=== PATIENT | female | born 1965 | race Caucasian/White ===

== ENCOUNTER 2018-08-04 06:38 | Day surgery (SDC) | payer OTHER, MEDICAID, SELFPAY ==
[2018-07-30 07:42] VITALS: BMI 43.2
[2018-08-04] VITALS (8 sets, daily range): BP systolic 125–147; BP diastolic 60–90; PULSE 65–80; RESP 10–15; TEMP 36.1–36.4; O2SAT 98–100; BMI 43.2
[2018-08-04] MEDS: LACTATED RINGERS 1,000 ML 100 ML IV (07:41)
[2018-08-04] MEDS: CEFAZOLIN 2 GM/100 ML FROZ.PIGGY IV (07:47)
--- NOTE | 2018-08-04 08:53 | SUR.OPER ---
Lithotomy on padded OR bed. [place] Pad Positioner under torso. Head on pillow, LEFT ARM padded and tucked at sides. Legs secured in padded yellow fins stirrups. RIGHT ARM SECURED ON ARM BOARD.
[2018-08-04] MEDS: BUPIVACAINE 0.5% W/ EPI (PF) VIAL 30 ML INJ (09:06)
[2018-08-04] MEDS: OXYCODONE IR 5 MG TABLET PO (09:59)
--- NOTE | 2018-08-04 14:04 | PM.PREOP ---
Pre-operative Note Interval Note History & Physical reviewed/Exam performed by Physician: Yes Changes to H&P: No
--- NOTE | 2018-08-11 06:17 | PM.GYNOP.1 ---
Operative Date/Time/Diagnoses Date of procedure: 08/04/18 Time of procedure: 10:15 Pre-op diagnosis: Abnormal uterine bleeding Pelvic pain Post-op diagnosis: same Procedure: Procedures Operation Date: 08/04/18 07:45 Actual Procedures Side Surgeon p Laparoscopy, Diagnostic, MINISTER Not Applicable Leah Pickering MD Diagnostic laparoscopy Indications: Abnormal uterine bleeding Pelvic pain Surgeon: Leah Pickering Administrative Services Coordinator: Bruce Victor Anesthesia Type: General Operative Notes Findings: Pendulous abdomen Deep subcutaneous fat in abdomen Closure Type: primary Specimen(s): none Applied: catheter (Removed at the end of the case) Estimated blood loss (mL): 5 Blood products transfused: none Procedure in detail: The patient was taken to the operating room where she was placed in the dorsal supine position. After adequate general endotracheal anesthesia was achieved, she was placed in the dorsal lithotomy position, and prepped and draped in the usual sterile fashion. A time-out was performed. A bivalve speculum was placed into the vagina, and the anterior lip of the cervix grasped with a single-tooth tenaculum. The cervical os was sequentially dilated until the Zumi uterine manipulator could pass easily into the endometrial cavity. Single-tooth tenaculum was removed from the anterior lip of the cervix. The bivalve speculum was removed from the vagina. Attention was then turned to the abdomen where 6 cc of 0.5% Marcaine with epinephrine were injected in the umbilical fold. A 5 mm incision was made. An attempt was made to place the long Veress needle, but was unable to get it into the peritoneal cavity. A decision was made to use a Cabrales trocar. The 5 mm incision was extended to 1 cm. The edges of the skin were grasped with Allis clamps. The fascia was identified and incised in the midline. The peritoneum was grasped between 2 hemostats and entered sharply with the Metzenbaum scissors. The Cabrales was placed into the peritoneal cavity. The abdominal cavity was insufflated with 5.4 L of CO2. At the max pressure of 18 mm of mercury, the pelvis was unable to be visualized. We were at the limits of our instrumentation due to the depth of the patient's abdominal wall. A conversation was held with her and the decision was made to close and refer patient to [place] where they have bariatric instrumentation. The has on was removed from peritoneal cavity. The fascia was reapproximated with 0 Vicryl in a running fashion. The subcutaneous layer was closed with 3 simple interrupted sutures with 2 0 Vicryl. The skin was closed with 4 0 undyed Vicryl in a subcuticular fashion. Steri-Strips, 2 x 2, and op site was placed. The Zumi uterine manipulator was removed from the uterus. Sponge, lap, and instrument counts were correct x2. The patient tolerated the procedure well, and was taken to PACU in stable condition. Complications: none Post-operative Condition: stable Disposition: PACU Plan for aftercare: Home after recovery
--- NOTE | 2018-08-11 06:24 | P.OP_ITS ---
Operative Date/Time/Diagnoses Date of procedure: 08/04/18 Time of procedure: 10:15 Pre-op diagnosis: Abnormal uterine bleeding Pelvic pain Post-op diagnosis: same Procedure: Procedures Operation Date: 08/04/18 07:45 Actual Procedures Side Surgeon p Laparoscopy, Diagnostic, CARDIOLOGIST Not Applicable Leah Pickering MD Diagnostic laparoscopy Indications: Abnormal uterine bleeding Pelvic pain Surgeon: Leah Pickering Seed Packer: Bruce Victor Anesthesia Type: General Operative Notes Findings: Pendulous abdomen Deep subcutaneous fat in abdomen Closure Type: primary Specimen(s): none Applied: catheter (Removed at the end of the case) Estimated blood loss (mL): 5 Blood products transfused: none Procedure in detail: The patient was taken to the operating room where she was placed in the dorsal supine position. After adequate general endotracheal anesthesia was achieved, she was placed in the dorsal lithotomy position, and prepped and draped in the usual sterile fashion. A time-out was performed. A bivalve speculum was placed into the vagina, and the anterior lip of the cervix grasped with a single-tooth tenaculum. The cervical os was sequentially dilated until the Zumi uterine manipulator could pass easily into the endometrial cavity. Single-tooth tenaculum was removed from the anterior lip of the cervix. The bivalve speculum was removed from the vagina. Attention was then turned to the abdomen where 6 cc of 0.5% Marcaine with epinephrine were injected in the umbilical fold. A 5 mm incision was made. An attempt was made to place the long Veress needle, but was unable to get it into the peritoneal cavity. A deci claire was made to use a Cabrales trocar. The 5 mm incision was extended to 1 cm. The edges of the skin were grasped with Allis clamps. The fascia was identified and incised in the midline. The peritoneum was grasped between 2 hemostats and entered sharply with the Metzenbaum scissors. The Cabrales was placed into the peritoneal cavity. The abdominal cavity was insufflated with 5.4 L of CO2. At the max pressure of 18 mm of mercury, the pelvis was unable to be visualized. We were at the limits of our instrumentation due to the depth of the patient's abdominal wall. A conversation was held with her and the decision was made to close and refer patient to [place] where they have bariatric instrumentation. The has on was removed from peritoneal cavity. The fascia was reapproximated with 0 Vicryl in a running fashion. The subcutaneous layer was closed with 3 simple interrupted sutures with 2 0 Vicryl. The skin was closed with 4 0 undyed Vicryl in a subcuticular fashion. Steri-Strips, 2 x 2, and op site was placed. The Zumi uterine manipulator was removed from the uterus. Sponge, lap, and instrument counts were correct x2. The patient tolerated the procedure well, and was taken to PACU in stable condition. Complications: none Post-operative Condition: stable Disposition: PACU Plan for aftercare: Home after recovery
--- NOTE | 2018-08-11 06:44 | PM.HP.1 ---
History of Present Illness Date Patient Seen: 08/04/18 Time Patient Seen: 07:30 Chief complaint: [id number] [facility] LES SALPINGECTOMY ? BSO *OPB* Narrative: Patient is a 53-year-old 2 para 0 who presents for a scheduled laparoscopic supracervical hysterectomy with bilateral salpingectomy Patient History Medical History Anxiety (Acute) Depression (Acute) Graves' disease (Acute) HTN (hypertension) (Acute) Hemorrhage of skin lesion (Acute) Hypothyroid (Acute) Insomnia (Acute) Pulmonary embolism (Acute ~2011) Surgical History Hx of colonoscopy (Acute) Social History household members: spouse Smoking Status: Never smoker Family & Social History Social History: household members spouse Tobacco & Substance use: Smoking Status Never smoker Substance Use Type does not use Meds Home Medications Medication Instructions Recorded Confirmed Type citalopram 40 mg tablet 40 mg PO DAILY 04/21/18 07/30/18 History hydrochlorothiazide 25 mg tablet 25 mg PO DAILY 04/21/18 08/04/18 History levothyroxine 200 mcg tablet 200 mcg PO DAILY 04/21/18 08/04/18 History levothyroxine 75 mcg tablet 75 mcg PO DAILY 04/21/18 08/04/18 History lisinopril 10 mg tablet 10 mg PO DAILY 04/21/18 08/04/18 History oxycodone-acetaminophen [Percocet] 1 tab PO Q4-6H PRN #20 tab 08/04/18 Rx progesterone 1 tab PO BEDTIME 08/04/18 08/04/18 History Allergies Allergy/AdvReac Type Severity Reaction Status Date / Time No Known Drug Allergies Allergy Verified 04/21/18 15:25 Exam Vital Signs (past 8 hours): Oxygen Delivery Method Room Air Narrative Exam Narrative: HEENT: [No thyromegaly, no anterior cervical or supraclavicular lymphadenopathy.] Lungs:[Clear to auscultation bilaterally, no wheezes.] Cardiovascular: [Regular rate and rhythm, no murmurs, rubs, or gallops]. Abdomen: [No scars. No hepatosplenomegaly. No masses palpable.] External genitalia: [Normal] Vagina: [Normal] Cervix: [Normal] Bimanual exam: 6 Week size uterus. Mobile. Rectal: [No masses]. Assessment & Plan Assessment & Plan narrative: Assessment: 53-year-old 2 para 0 with menorrhagia Plan: Laparoscopic supracervical hysterectomy with bilateral salpingectomy. The risks, benefits, and alternatives to the procedure were explained to the patient. The risks including bleeding, infection, injury to the bowel, bladder, or ureters. She understands these risks and agrees to proceed. She also understands that there is a possibility of an open procedure. A full PAR-Q was held and consent form was signed. Time Spent With Patient Time with patient: 15-24 minutes
--- NOTE | 2018-08-11 06:47 | P.HP_ITS ---
History of Present Illness Date Patient Seen: 08/04/18 Time Patient Seen: 07:30 Chief complaint: [id number] [facility] LES SALPINGECTOMY ? BSO *OPB* Narrative: Patient is a 53-year-old 2 para 0 who presents for a scheduled laparoscopic supracervical hysterectomy with bilateral salpingectomy Patient History Medical History Anxiety (Acute) Depression (Acute) Graves' disease (Acute) HTN (hypertension) (Acute) Hemorrhage of skin lesion (Acute) Hypothyroid (Acute) Insomnia (Acute) Pulmonary embolism (Acute ~2011) Surgical History Hx of colonoscopy (Acute) Social History household members: spouse Smoking Status: Never smoker Family & Social History Social History: household members spouse Tobacco & Substance use: Smoking Status Never smoker Substance Use Type does not use Meds Home Medications Medication Instructions Recorded Confirmed Type citalopram 40 mg tablet 40 mg PO DAILY 04/21/18 07/30/18 History hydrochlorothiazide 25 mg tablet 25 mg PO DAILY 04/21/18 08/04/18 History levothyroxine 200 mcg tablet 200 mcg PO DAILY 04/21/18 08/04/18 History levothyroxine 75 mcg tablet 75 mcg PO DAILY 04/21/18 08/04/18 History lisinopril 10 mg tablet 10 mg PO DAILY 04/21/18 08/04/18 History oxycodone-acetaminophen [Percocet] 1 tab PO Q4-6H PRN #20 tab 08/04/18 Rx progesterone 1 tab PO BEDTIME 08/04/18 08/04/18 History Allergies Allergy/AdvReac Type Severity Reaction Status Date / Time No Known Drug Allergies Allergy Verified 04/21/18 15:25 Exam Vital Signs (past 8 hours): Oxygen Delivery Method Room Air Narrative Exam Narrative: HEENT: [No thyromegaly, no anterior cervical or supraclavicular lymphadenopathy.] Lungs:[Clear to auscultation bilaterally, no wheezes.] Cardiovascular: [Regular rate and rhythm, no murmurs, rubs, or gallops]. Abdomen: [No scars. No hepatosplenomegaly. No masses palpable.] External genitalia: [Normal] Vagina: [Normal] Cervix: [Normal] Bimanual exam: 6 Week size uterus. Mobile. Rectal: [No masses]. Assessment & Plan Assessment & Plan narrative: Assessment: 53-year-old 2 para 0 with menorrhagia Plan: Laparoscopic supracervical hysterectomy with bilateral salpingectomy. The risks, benefits, and alternatives to the procedure were explained to the patient. The risks including bleeding, infection, injury to the bowel, bladder, or ureters. She understands these risks and agrees to proceed. She also understands that there is a possibility of an open procedure. A full PAR-Q was h eld and consent form was signed. Time Spent With Patient Time with patient: 15-24 minutes
== END 2018-08-04 10:25 | disposition home or self-care (01) ==
PROVIDERS: PCP Family Medicine; Visit Provider Obstetrics & Gynecology
PROC: (CPT 49320; principal; 2018-08-04 07:45)
DX: N92.0 Excessive and frequent menstruation with regular cycle (principal); E65 Localized adiposity; F41.9 Anxiety disorder, unspecified; F32.9 Major depressive disorder, single episode, unspecified; E05.00 Thyrotoxicosis with diffuse goiter without thyrotoxic crisis or storm; E03.9 Hypothyroidism, unspecified; I10 Essential (primary) hypertension; Z86.711 Personal history of pulmonary embolism
CPT/HCPCS: 49320; J0131; J0690; J1100; J1885; J2250; J2405; J2704; J3010

== ENCOUNTER → 2021-02-06 13:23 | Outpatient (CLI) | payer OTHER, SELFPAY ==
[2021-02-06 20:23] LABS: Uric Acid 7.9 mg/dL (2.5-6.2)
== END ==
PROVIDERS: PCP Family Medicine; Visit Provider Physician Assistant
DX: M10.9 Gout, unspecified (principal)
CPT/HCPCS: 84550

== ENCOUNTER → 2021-02-15 13:05 | Outpatient (CLI) | payer OTHER, SELFPAY ==
[2021-02-15 19:11] LABS: Add Manual Diff / Slide Review NO; Basophils Absolute Auto 100 /uL (0-100); Basophils Percent Auto 0.9 % (0-2); Eosinophils Absolute Auto 300 /uL (0-450); Eosinophils Percent Auto 4.3 % (2-4); Hematocrit 39.2 % (36-46); Hemoglobin 12.8 g/dL (12.0-16.0); Lymphocytes Absolute Auto 2500 /uL (1100-4500); Lymphocytes Percent Auto 32.8 % (25-40); Mean Corpuscular HGB Conc 32.7 % (30-36); Mean Corpuscular Hemoglobin 28.3 PG (26-34); Mean Corpuscular Volume 86.6 fL (80-100); Monocytes Absolute Auto 400 /uL (0-900); Monocytes Percent Auto 5.8 % (3-14); Neutrophils Absolute Auto 4300 /uL (1500-7000); Neutrophils Percent Auto 56.2 % (50-75); Platelet Count 358 X10^3/uL (150-400); Red Blood Cell Count 4.53 X10^6/uL (4.0-5.2); Red Cell Distribution Width 14.7 % (11.6-14.8); White Blood Cell Count 7.6 X10^3/uL (4.5-11.0)
[2021-02-15 19:19] LABS: Alanine Aminotransferase 27 IU/L (<35); Albumin 4.5 g/dL (3.5-5.0); Albumin Globulin Ratio 1.5 (1.0-2.8); Alkaline Phosphatase 77 U/L (38-126); Aspartate Aminotransferase 39 IU/L (14-36); BUN Creatinine Ratio 20.9 (6-22); Bilirubin Total 0.4 mg/dL (0.2-1.3); Blood Urea Nitrogen 19 mg/dL (7-17); Calcium 9.9 mg/dL (8.4-10.2); Carbon Dioxide 29 mmol/L (22-32); Chloride 102 mmol/L (98-107); Estimated Glomerular Filt Rate > 60.0 mL/min (>60); Globulin 3.1 g/dL (1.7-4.1); Glucose 86 mg/dL (70-100); HEMOLYSIS < 15 (0-50); Potassium 4.2 mmol/L (3.4-5.1); Sodium 137 mmol/L (137-145); Total Protein 7.6 g/dL (6.3-8.2); Uric Acid 6.5 mg/dL (2.5-6.2)
[2021-02-15 19:26] LABS: Hemoglobin A1C% w Est Avg Glu 5.6 % (4.0-6.0)
[2021-02-15 19:43] LABS: Thyroid Stimulating Hormone 67.5 uIU/mL (0.47-4.68)
== END ==
PROVIDERS: PCP Family Medicine; Visit Provider Family Medicine
DX: M10.9 Gout, unspecified (principal); I10 Essential (primary) hypertension; M25.562 Pain in left knee; E66.9 Obesity, unspecified; N21.1 Calculus in urethra; E03.9 Hypothyroidism, unspecified; Z13.220 Encounter for screening for lipoid disorders; M25.50 Pain in unspecified joint
CPT/HCPCS: 80053; 83036; 84443; 84550; 85025

== ENCOUNTER → 2021-04-10 09:36 | Outpatient (CLI) | payer OTHER, SELFPAY ==
[2021-04-11 19:35] LABS: Cholesterol 176 mg/dL (140-199); HDL Cholesterol 56 mg/dL (40-60); LDL Cholesterol Calculated 93 mg/dL (<100); Triglycerides 133 mg/dL (35-150); Uric Acid 5.5 mg/dL (2.5-6.2)
[2021-04-11 19:56] LABS: Thyroid Stimulating Hormone 0.033 uIU/mL (0.47-4.68)
[2021-04-13 05:57] LABS: Insulin Level Total 17.3 uIU/mL (2.6-24.9)
== END ==
PROVIDERS: PCP Family Medicine; Referring Provider Family Medicine; Visit Provider Family Medicine
DX: E03.9 Hypothyroidism, unspecified (principal); E66.9 Obesity, unspecified; F33.1 Major depressive disorder, recurrent, moderate; F41.9 Anxiety disorder, unspecified; I10 Essential (primary) hypertension; N21.1 Calculus in urethra; Z13.220 Encounter for screening for lipoid disorders
CPT/HCPCS: 80061; 83525; 84443; 84550

== ENCOUNTER → 2021-04-13 19:53 | Outpatient (CLI) | payer OTHER, SELFPAY | PROVIDERS: PCP Family Medicine; Referring Provider Internal Medicine; Visit Provider Internal Medicine | DX: Z23 Encounter for immunization (principal) | CPT/HCPCS: 90471; 90686 ==

== ENCOUNTER → 2021-10-24 08:25 | Outpatient (CLI) | payer OTHER, SELFPAY ==
[2021-10-24 19:17] LABS: Add Manual Diff / Slide Review NO; Basophils Absolute Auto 0 /uL (0-100); Basophils Percent Auto 0.6 % (0-2); Eosinophils Absolute Auto 400 /uL (0-450); Eosinophils Percent Auto 4.9 % (2-4); Hematocrit 38.9 % (36-46); Hemoglobin 12.7 g/dL (12.0-16.0); Lymphocytes Absolute Auto 1700 /uL (1100-4500); Mean Corpuscular HGB Conc 32.6 % (30-36); Mean Corpuscular Hemoglobin 28.5 PG (26-34); Mean Corpuscular Volume 87.4 fL (80-100); Monocytes Absolute Auto 500 /uL (0-900); Monocytes Percent Auto 7.4 % (3-14); Neutrophils Absolute Auto 4700 /uL (1500-7000); Neutrophils Percent Auto 64.1 % (50-75); Platelet Count 363 X10^3/uL (150-400); Red Blood Cell Count 4.45 X10^6/uL (4.0-5.2); Red Cell Distribution Width 15.2 % (11.6-14.8); White Blood Cell Count 7.3 X10^3/uL (4.5-11.0)
[2021-10-24 19:22] LABS: Alanine Aminotransferase 17 IU/L (<35); Albumin 4.3 g/dL (3.5-5.0); Albumin Globulin Ratio 1.4 (1.0-2.8); Alkaline Phosphatase 74 U/L (38-126); Aspartate Aminotransferase 23 IU/L (14-36); BUN Creatinine Ratio 26.5 (6-22); Bilirubin Total 0.4 mg/dL (0.2-1.3); Blood Urea Nitrogen 27 mg/dL (7-17); Calcium 9.6 mg/dL (8.4-10.2); Carbon Dioxide 29 mmol/L (22-32); Chloride 104 mmol/L (98-107); Cholesterol 216 mg/dL (140-199); Estimated Glomerular Filt Rate > 60 mL/min (>60); Globulin 3.1 g/dL (1.7-4.1); Glucose 86 mg/dL (70-100); HDL Cholesterol 84 mg/dL (40-60); HEMOLYSIS < 15 (0-50); LDL Cholesterol Calculated 113 mg/dL (<100); Potassium 3.9 mmol/L (3.4-5.1); Sodium 141 mmol/L (137-145); Total Protein 7.4 g/dL (6.3-8.2); Triglycerides 94 mg/dL (35-150)
[2021-10-24 19:35] LABS: Free T4, Direct Thyroxine 1.58 ng/dL (0.78-2.19)
[2021-10-24 19:45] LABS: Vitamin D 25 Hydroxy (D3) 28.2 ng/mL (30.0-100.0)
[2021-10-24 19:49] LABS: Thyroid Stimulating Hormone 21.6 uIU/mL (0.47-4.68)
[2021-10-24 20:12] LABS: Vitamin B12 792 pg/mL (239-931)
[2021-10-24 21:57] LABS: Hemoglobin A1C% w Est Avg Glu 5.7 % (4.0-6.0)
== END ==
PROVIDERS: PCP Family Medicine; Visit Provider Family Medicine
DX: E03.4 Atrophy of thyroid (acquired) (principal); E66.01 Morbid (severe) obesity due to excess calories; I10 Essential (primary) hypertension; R07.89 Other chest pain; Z13.220 Encounter for screening for lipoid disorders; Z68.42 Body mass index [BMI] 45.0-49.9, adult; Z68.45 Body mass index [BMI] 70 or greater, adult
CPT/HCPCS: 80053; 80061; 82306; 82607; 83036; 84439; 84443; 85025

== ENCOUNTER → 2022-01-11 13:38 | Outpatient (CLI) | payer OTHER, SELFPAY ==
[2022-01-11 20:32] LABS: Add Manual Diff / Slide Review NO; Basophils Absolute Auto 100 /uL (0-100); Basophils Percent Auto 0.7 % (0-2); Eosinophils Absolute Auto 300 /uL (0-450); Eosinophils Percent Auto 2.7 % (2-4); Hematocrit 40.1 % (36-46); Hemoglobin 13.3 g/dL (12.0-16.0); Lymphocytes Absolute Auto 2400 /uL (1100-4500); Lymphocytes Percent Auto 25.2 % (25-40); Mean Corpuscular HGB Conc 33.1 % (30-36); Mean Corpuscular Hemoglobin 29.2 PG (26-34); Mean Corpuscular Volume 88.1 fL (80-100); Monocytes Absolute Auto 600 /uL (0-900); Monocytes Percent Auto 5.9 % (3-14); Neutrophils Absolute Auto 6100 /uL (1500-7000); Neutrophils Percent Auto 65.5 % (50-75); Platelet Count 364 X10^3/uL (150-400); Red Blood Cell Count 4.56 X10^6/uL (4.0-5.2); Red Cell Distribution Width 15.9 % (11.6-14.8); White Blood Cell Count 9.3 X10^3/uL (4.5-11.0)
[2022-01-11 20:58] LABS: Erythrocyte Sedimentation Rate 49 MM/HR (0-20)
== END ==
PROVIDERS: PCP Family Medicine; Visit Provider Family Medicine
DX: N21.1 Calculus in urethra (principal); R31.9 Hematuria, unspecified; I10 Essential (primary) hypertension; R50.9 Fever, unspecified
CPT/HCPCS: 84550; 85025; 85651; 87077; 87086; 87186

== ENCOUNTER → 2022-04-02 16:57 | Outpatient (CLI) | payer OTHER, SELFPAY | PROVIDERS: PCP Family Medicine; Referring Provider Internal Medicine; Visit Provider Internal Medicine | DX: Z23 Encounter for immunization (principal) | CPT/HCPCS: 90471; 90686 ==

== ENCOUNTER → 2022-05-21 12:15 | Outpatient (CLI) | payer OTHER, SELFPAY ==
[2022-05-21 20:35] LABS: Alanine Aminotransferase 25 IU/L (<35); Albumin 4.4 g/dL (3.5-5.0); Albumin Globulin Ratio 1.4 (1.0-2.8); Alkaline Phosphatase 68 U/L (38-126); Aspartate Aminotransferase 37 IU/L (14-36); BUN Creatinine Ratio 19.7 (6-22); Bilirubin Total 0.4 mg/dL (0.2-1.3); Blood Urea Nitrogen 26 mg/dL (7-17); Calcium 9.8 mg/dL (8.4-10.2); Carbon Dioxide 30 mmol/L (22-32); Chloride 98 mmol/L (98-107); Cholesterol 322 mg/dL (140-199); Estimated Glomerular Filt Rate 47 mL/min (>60); Globulin 3.1 g/dL (1.7-4.1); Glucose 84 mg/dL (70-100); HDL Cholesterol 93 mg/dL (40-60); HEMOLYSIS < 15 (0-50); LDL Cholesterol Calculated 207 mg/dL (<100); Potassium 3.9 mmol/L (3.4-5.1); Sodium 137 mmol/L (137-145); Total Protein 7.5 g/dL (6.3-8.2); Triglycerides 108 mg/dL (35-150)
[2022-05-21 20:38] LABS: Add Manual Diff / Slide Review NO; Basophils Absolute Auto 100 /uL (0-100); Basophils Percent Auto 1.2 % (0-2); Eosinophils Absolute Auto 300 /uL (0-450); Eosinophils Percent Auto 3.6 % (2-4); Hematocrit 36.8 % (36-46); Hemoglobin 12.2 g/dL (12.0-16.0); Lymphocytes Absolute Auto 2300 /uL (1100-4500); Lymphocytes Percent Auto 30.3 % (25-40); Mean Corpuscular HGB Conc 33.2 % (30-36); Mean Corpuscular Hemoglobin 29.5 PG (26-34); Mean Corpuscular Volume 88.7 fL (80-100); Monocytes Absolute Auto 500 /uL (0-900); Monocytes Percent Auto 6.2 % (3-14); Neutrophils Absolute Auto 4400 /uL (1500-7000); Neutrophils Percent Auto 58.7 % (50-75); Platelet Count 332 X10^3/uL (150-400); Red Blood Cell Count 4.15 X10^6/uL (4.0-5.2); Red Cell Distribution Width 15.1 % (11.6-14.8); White Blood Cell Count 7.5 X10^3/uL (4.5-11.0)
[2022-05-22 17:31] LABS: Free T4, Direct Thyroxine 0.09 ng/dL (0.78-2.19)
[2022-05-22 18:34] LABS: Hemoglobin A1C% w Est Avg Glu 5.9 % (4.0-6.0)
== END ==
PROVIDERS: PCP Family Medicine; Visit Provider Family Medicine
DX: E03.4 Atrophy of thyroid (acquired) (principal); E11.8 Type 2 diabetes mellitus with unspecified complications; Z68.42 Body mass index [BMI] 45.0-49.9, adult
CPT/HCPCS: 80053; 80061; 83036; 84439; 84443; 85025

== ENCOUNTER → 2022-11-27 13:06 | Outpatient (CLI) | payer OTHER, SELFPAY | PROVIDERS: PCP Family Medicine; Visit Provider Physician Assistant | DX: J35.1 Hypertrophy of tonsils (principal) | CPT/HCPCS: 87070 ==

== ENCOUNTER → 2023-02-20 10:25 | Outpatient (CLI) | payer OTHER, MEDICAID, SELFPAY ==
[2023-02-20 20:28] LABS: Hematocrit 33.5 % (36-46); Mean Corpuscular HGB Conc 32.9 % (30-36); Mean Corpuscular Hemoglobin 29.2 PG (26-34); Mean Corpuscular Volume 88.8 fL (80-100); Platelet Count 322 X10^3/uL (150-400); Red Blood Cell Count 3.77 X10^6/uL (4.0-5.2); White Blood Cell Count 7.1 X10^3/uL (4.5-11.0)
[2023-02-20 20:37] LABS: Hemoglobin A1C% w Est Avg Glu 5.4 % (4.0-6.0)
[2023-02-20 20:45] LABS: Alanine Aminotransferase 15 IU/L (<35); Albumin 3.8 g/dL (3.5-5.0); Albumin Globulin Ratio 1.2 (1.0-2.8); Alkaline Phosphatase 70 U/L (38-126); Aspartate Aminotransferase 23 IU/L (14-36); BUN Creatinine Ratio 20.8 (6-22); Bilirubin Total 0.2 mg/dL (0.2-1.3); Blood Urea Nitrogen 25 mg/dL (7-17); Calcium 8.7 mg/dL (8.4-10.2); Carbon Dioxide 28 mmol/L (22-32); Chloride 103 mmol/L (98-107); Cholesterol 248 mg/dL (140-199); Estimated Glomerular Filt Rate 53 mL/min (>60); Globulin 3.1 g/dL (1.7-4.1); Glucose 94 mg/dL (70-100); HDL Cholesterol 80 mg/dL (40-60); HEMOLYSIS < 15 (0-50); LDL Cholesterol Calculated 151 mg/dL (<100); Potassium 3.5 mmol/L (3.4-5.1); Sodium 139 mmol/L (137-145); Total Protein 6.9 g/dL (6.3-8.2); Triglycerides 83 mg/dL (35-150)
[2023-02-20 21:04] LABS: Add Manual Diff / Slide Review YES
[2023-02-20 21:07] LABS: Microalbumin Urine Random 3.5 mg/dL (0-1.6)
[2023-02-20 21:17] LABS: Creatinine Urine Random 431.3 mg/dL; Microalbumi Creatinin Ratio Ur 8.1 ug/mg CR (<30)
[2023-02-20 22:19] LABS: Neutrophils Absolute Manual 4899 /uL (3000-5900); RBC Morphology Normal Morphology; Total Cells Counted 100
[2023-02-20 22:35] LABS: Free T4, Direct Thyroxine 0.19 ng/dL (0.78-2.19)
== END ==
PROVIDERS: PCP Family Medicine; Visit Provider Family Medicine
DX: E03.9 Hypothyroidism, unspecified (principal); E11.9 Type 2 diabetes mellitus without complications; E78.2 Mixed hyperlipidemia; F98.8 Other specified behavioral and emotional disorders with onset usually occurring in childhood and adolescence; I10 Essential (primary) hypertension; M10.9 Gout, unspecified; N18.31 Chronic kidney disease, stage 3a; Z68.42 Body mass index [BMI] 45.0-49.9, adult; Z79.899 Other long term (current) drug therapy
CPT/HCPCS: 80053; 80061; 82043; 82570; 83036; 84439; 84443; 85007; 85025

== ENCOUNTER → 2023-05-20 14:37 | Outpatient (CLI) | payer OTHER, MEDICAID, SELFPAY ==
[2023-05-20 19:22] LABS: Cholesterol 284 mg/dL (140-199); HDL Cholesterol 87 mg/dL (40-60); LDL Cholesterol Calculated 183 mg/dL (<100); Triglycerides 70 mg/dL (35-150)
[2023-05-20 19:28] LABS: Add Manual Diff / Slide Review NO; Basophils Absolute Auto 0 /uL (0-100); Basophils Percent Auto 0.4 % (0-2); Eosinophils Absolute Auto 200 /uL (0-450); Eosinophils Percent Auto 3.1 % (2-4); Hematocrit 36.8 % (36-46); Hemoglobin 12.1 g/dL (12.0-16.0); Lymphocytes Absolute Auto 1800 /uL (1100-4500); Lymphocytes Percent Auto 25.8 % (25-40); Mean Corpuscular HGB Conc 32.9 % (30-36); Mean Corpuscular Hemoglobin 28.7 PG (26-34); Mean Corpuscular Volume 87.2 fL (80-100); Monocytes Absolute Auto 400 /uL (0-900); Monocytes Percent Auto 5.7 % (3-14); Neutrophils Absolute Auto 4400 /uL (1500-7000); Platelet Count 329 X10^3/uL (150-400); Red Blood Cell Count 4.22 X10^6/uL (4.0-5.2); Red Cell Distribution Width 15.5 % (11.6-14.8); White Blood Cell Count 6.8 X10^3/uL (4.5-11.0)
[2023-05-20 20:13] LABS: Vitamin B12 466 pg/mL (239-931)
== END ==
PROVIDERS: PCP Family Medicine; Visit Provider Family Medicine
DX: R73.03 Prediabetes (principal); N18.31 Chronic kidney disease, stage 3a; I10 Essential (primary) hypertension; E78.2 Mixed hyperlipidemia; F32.9 Major depressive disorder, single episode, unspecified; Z68.42 Body mass index [BMI] 45.0-49.9, adult; E03.9 Hypothyroidism, unspecified
CPT/HCPCS: 80061; 82607; 84439; 84443; 85025

== ENCOUNTER → 2023-10-03 08:40 | Outpatient (CLI) | payer OTHER, MEDICAID, SELFPAY ==
[2023-10-03 19:06] LABS: Add Manual Diff / Slide Review NO; Basophils Absolute Auto 100 /uL (0-100); Basophils Percent Auto 1.3 % (0-2); Eosinophils Absolute Auto 200 /uL (0-450); Hematocrit 36.1 % (36-46); Hemoglobin 11.7 g/dL (12.0-16.0); Lymphocytes Absolute Auto 2000 /uL (1100-4500); Lymphocytes Percent Auto 26.8 % (25-40); Mean Corpuscular HGB Conc 32.5 % (30-36); Mean Corpuscular Hemoglobin 28.4 PG (26-34); Mean Corpuscular Volume 87.2 fL (80-100); Monocytes Absolute Auto 400 /uL (0-900); Neutrophils Absolute Auto 4600 /uL (1500-7000); Neutrophils Percent Auto 62.9 % (50-75); Platelet Count 299 X10^3/uL (150-400); Red Blood Cell Count 4.14 X10^6/uL (4.0-5.2); Red Cell Distribution Width 14.5 % (11.6-14.8); White Blood Cell Count 7.3 X10^3/uL (4.5-11.0)
[2023-10-03 19:07] LABS: HEMOLYSIS < 15 (0-50)
[2023-10-03 19:08] LABS: BUN Creatinine Ratio 33.8 (6-22); Blood Urea Nitrogen 24 mg/dL (7-17); Calcium 9.8 mg/dL (8.4-10.2); Carbon Dioxide 30 mmol/L (22-32); Chloride 109 mmol/L (98-107); Cholesterol 180 mg/dL (140-199); Estimated Glomerular Filt Rate > 60 mL/min (>60); Glucose 95 mg/dL (70-100); HDL Cholesterol 66 mg/dL (40-60); LDL Cholesterol Calculated 97 mg/dL (<100); Sodium 141 mmol/L (137-145); Triglycerides 84 mg/dL (35-150)
[2023-10-03 19:38] LABS: TSH w/ Reflex to FT4 6.36 uIU/mL (0.47-4.68)
[2023-10-03 20:31] LABS: Free T4, Direct Thyroxine 2.27 ng/dL (0.78-2.19)
== END ==
PROVIDERS: PCP Family Medicine; Visit Provider Family Medicine
DX: E78.2 Mixed hyperlipidemia (principal); I12.9 Hypertensive chronic kidney disease with stage 1 through stage 4 chronic kidney disease, or unspecified chronic kidney disease; N18.31 Chronic kidney disease, stage 3a; E03.9 Hypothyroidism, unspecified; F98.8 Other specified behavioral and emotional disorders with onset usually occurring in childhood and adolescence; Z68.43 Body mass index [BMI] 50.0-59.9, adult
CPT/HCPCS: 80048; 80061; 84439; 84443; 85025

== ENCOUNTER → 2023-12-26 13:02 | Outpatient (CLI) | payer OTHER, MEDICAID, SELFPAY ==
[2023-12-26 21:47] LABS: Add Manual Diff / Slide Review NO; Basophils Absolute Auto 0 /uL (0-100); Basophils Percent Auto 0.5 % (0-2); Eosinophils Absolute Auto 200 /uL (0-450); Hematocrit 36.2 % (36-46); Hemoglobin 11.7 g/dL (12.0-16.0); Lymphocytes Absolute Auto 1200 /uL (1100-4500); Lymphocytes Percent Auto 16.1 % (25-40); Mean Corpuscular HGB Conc 32.4 % (30-36); Mean Corpuscular Hemoglobin 27.8 PG (26-34); Mean Corpuscular Volume 85.7 fL (80-100); Monocytes Absolute Auto 500 /uL (0-900); Monocytes Percent Auto 7.1 % (3-14); Neutrophils Absolute Auto 5700 /uL (1500-7000); Neutrophils Percent Auto 74.3 % (50-75); Platelet Count 376 X10^3/uL (150-400); Red Blood Cell Count 4.23 X10^6/uL (4.0-5.2); Red Cell Distribution Width 16.6 % (11.6-14.8); White Blood Cell Count 7.7 X10^3/uL (4.5-11.0)
[2023-12-27 01:14] LABS: BUN Creatinine Ratio 26.9 (6-22); Blood Urea Nitrogen 25 mg/dL (7-17); Calcium 9.6 mg/dL (8.4-10.2); Carbon Dioxide 28 mmol/L (22-32); Chloride 108 mmol/L (98-107); Cholesterol 148 mg/dL (140-199); Estimated Glomerular Filt Rate > 60 mL/min (>60); Glucose 101 mg/dL (70-100); HDL Cholesterol 61 mg/dL (40-60); HEMOLYSIS < 15 (0-50); LDL Cholesterol Calculated 74 mg/dL (<100); Potassium 4.4 mmol/L (3.4-5.1); Sodium 139 mmol/L (137-145); Triglycerides 63 mg/dL (35-150)
[2023-12-27 05:29] LABS: TSH w/ Reflex to FT4 0.28 uIU/mL (0.47-4.68)
[2023-12-27 05:47] LABS: Vitamin B12 907 pg/mL (239-931)
[2023-12-27 06:20] LABS: Free T4, Direct Thyroxine 4.52 ng/dL (0.78-2.19)
== END ==
PROVIDERS: PCP Family Medicine; Visit Provider Family Medicine
DX: I12.9 Hypertensive chronic kidney disease with stage 1 through stage 4 chronic kidney disease, or unspecified chronic kidney disease (principal); N18.31 Chronic kidney disease, stage 3a; E78.2 Mixed hyperlipidemia; E03.9 Hypothyroidism, unspecified; Z90.3 Acquired absence of stomach [part of]; Z68.43 Body mass index [BMI] 50.0-59.9, adult
CPT/HCPCS: 80048; 80061; 82607; 84439; 84443; 85025

== ENCOUNTER 2024-02-22 10:53 | Inpatient (IN) | payer OTHER, MEDICAID, SELFPAY ==
[2024-02-22] VITALS (35 sets, daily range): BP systolic 149–219; BP diastolic 69–105; PULSE 76–118; RESP 12–41; TEMP 36.9; O2SAT 84–98; BMI 49.7
--- NOTE | 2024-02-22 11:05 | DI.RAD.S_ITS ---
PROCEDURE: XR CHEST 1V INDICATIONS: chest pain TECHNIQUE: One view of the chest was acquired. COMPARISON: [facility], , CHEST 2 VIEW, 09/08/2017, 10:12. FINDINGS: Surgical changes and devices: None. Lungs and pleura: Lungs are clear. No pleural effusions or pneumothorax. Mediastinum: Mediastinal contours appear normal. The heart is enlarged. Bones and chest wall: No suspicious bony lesions. Overlying soft tissues appear unremarkable. IMPRESSION: Cardiomegaly without acute cardiopulmonary process. Dictated by: Pati Simons M.D. on 02/22/2024 at 10:43 Approved by: Pati Simons M.D. on 02/22/2024 at 10:45
--- NOTE | 2024-02-22 11:18 | EKG_ITS ---
[address] [address] Test Date: 2024-02-22 Pat Name: Alireza Aguirre Department: [facility] Room: Gender: Female Back Digger Operator: CYNDEE : 1965 Requested By: Order Number: [id number] Reading MD: Rayray Brarow Measurements Intervals [place] Rate: 88 P: 51 ID: [id number] QRS: 54 QRSD: 84 T: 49 QT: 386 QTc: 467 Interpretive Statements Normal sinus rhythm Electronically Signed On 02-22-2024 18:16:11 PDT by Rayray Barrow
[2024-02-22 11:22] LABS: Add Manual Diff / Slide Review NO; Basophils Absolute Auto 100 /uL (0-100); Basophils Percent Auto 0.9 % (0-2); Eosinophils Absolute Auto 100 /uL (0-450); Hematocrit 34.3 % (36-46); Hemoglobin 11.1 g/dL (12.0-16.0); Lymphocytes Absolute Auto 1300 /uL (1100-4500); Lymphocytes Percent Auto 10.2 % (25-40); Mean Corpuscular HGB Conc 32.4 % (30-36); Mean Corpuscular Hemoglobin 27.8 PG (26-34); Monocytes Absolute Auto 800 /uL (0-900); Monocytes Percent Auto 6.2 % (3-14); Neutrophils Absolute Auto 10600 /uL (1500-7000); Neutrophils Percent Auto 81.7 % (50-75); Platelet Count 292 X10^3/uL (150-400); Red Blood Cell Count 3.99 X10^6/uL (4.0-5.2); Red Cell Distribution Width 15.3 % (11.6-14.8)
[2024-02-22 11:24] LABS: Appearance Urine UA CLEAR; Bilirubin Urine UA 1+ (NEGATIVE); Color Urine UA YELLOW; Glucose Urine UA NEGATIVE (Negative); Ketones Urine UA NEGATIVE (NEGATIVE); Leukocyte Esterase Urine UA NEGATIVE (NEGATIVE); Nitrite Urine UA NEGATIVE (Negative); Occult Blood Urine UA TRACE-INTACT (Negative); Protein Urine UA TRACE (Negative); Specific Gravity Urine UA 1.015 (1.000-1.035)
--- NOTE | 2024-02-22 11:26 | DI.CT.S_ITS ---
Approved by: Pati Simons M.D. on 02/22/2024 at 11:44 Caution: Report not yet finalized and possibly incomplete! PROCEDURE: CT ANGIO CHEST PE PROTOCOL, CT ABDOMEN/PELVIS WITH CONTRAST INDICATIONS: syncope/ hypoxia/oxygen req./ tachycardia TECHNIQUE: Computed tomography of the chest, abdomen, and pelvis was performed following the administration of IV contrast. Coronal, sagittal, and maximum intensity projection reformatted images are provided. For radiation dose reduction, the following was used: automated exposure control, adjustment of mA and/or kV according to patient size. COMPARISON: None. FINDINGS: Image quality: Diagnostic. Pulmonary arteries: The main pulmonary arteries and pulmonary trunk are of normal caliber without intraluminal filling defect. There are extensive bilateral filling defects within all segmental arteries extending into several subsegmental arteries. Lower Neck: No enlarged lymph nodes. Thyroid: Visible portions unremarkable. Axillae: No enlarged lymph nodes. Chest Wall: Unremarkable. Bones: Unremarkable. Lungs and Pleura: No pneumothorax or pleural effusions. No consolidation or suspicious nodules. Heart: Heart size is normal. No pericardial effusion. Thoracic Vessels: No aortic aneurysm. Mediastinum and [place]: No enlarged lymph nodes. Esophagus: No wall thickening. No hiatal hernia. Liver: Normal size and morphology without focal lesion. Biliary: No intraluminal stone or debris. No biliary ductal dilation. Pancreas: Mild fatty atrophy without focal lesion. Spleen: Normal. Adrenals: Normal. Kidneys: Normal without stone or hydronephrosis. Mesentery: No ascites or lymphadenopathy. No mesenteric inflammation. Bowel: Bowel is of normal caliber without obstruction. Postsurgical changes of the stomach are shown. Bones: Intact without aggressive lesion. Soft tissues: There is a small fat containing umbilical hernia. Otherwise normal. IMPRESSION: Extensive multifocal segmental pulmonary emboli. No acute abdominal process. Dictated by: Pati Simons M.D. on 02/22/2024 at 11:33
[2024-02-22 11:32] LABS: Bacteria Urine Moderate (10-30); Ictotest Urine Negative (Negative); RBC Urine 1-5/HPF (0-5/HPF); Squamous Epithelial Cell Urine 5-10 /HPF (0-5/HPF); Urine Volume 10mL (spun); WBC Urine 5-10/HPF (0-5/HPF)
[2024-02-22 11:33] LABS: Amorphous Sediment Urine 2+; Culture Indicated Urine Specimen Cultured
[2024-02-22 11:34] LABS: INR 1.1 (0.9-1.3); Prothrombin Time 12.8 SECONDS (9.4-12.5)
[2024-02-22 11:36] LABS: PTT Partial Thromboplastin Tim 35 SECONDS (25.1-36.5)
[2024-02-22 11:38] LABS: Alanine Aminotransferase 25 IU/L (<35); Albumin 3.6 g/dL (3.5-5.0); Albumin Globulin Ratio 1.1 (1.0-2.8); Alkaline Phosphatase 81 U/L (38-126); Aspartate Aminotransferase 29 IU/L (14-36); BUN Creatinine Ratio 22.4 (6-22); Bilirubin Total 0.6 mg/dL (0.2-1.3); Blood Urea Nitrogen 19 mg/dL (7-17); Calcium 9.4 mg/dL (8.4-10.2); Carbon Dioxide 25 mmol/L (22-32); Chloride 108 mmol/L (98-107); Creatine Kinase 48 U/L (30-135); Estimated Glomerular Filt Rate > 60 mL/min (>60); Globulin 3.2 g/dL (1.7-4.1); Glucose 104 mg/dL (70-100); HEMOLYSIS < 15 (0-50); Lipase 78 U/L (23-300); Magnesium 1.8 mg/dL (1.6-2.3); Potassium 4.1 mmol/L (3.4-5.1); Sodium 138 mmol/L (137-145); Total Protein 6.8 g/dL (6.3-8.2)
[2024-02-22] MEDS: SODIUM CHLORIDE 0.9% 1,000 ML 1000 ML IV (11:38)
[2024-02-22 11:50] LABS: NT-proBNP (BNP-Adult 18+) 2550 pg/mL (<125); Troponin I 0.037 ng/mL (0.01-0.034)
--- NOTE | 2024-02-22 12:16 | ED.SYNCOPE ---
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 No focal weakness to face arm or leg. She denies chest pain. On oxygen nasal cannula she denies any shortness of breath. She has no leg pain or swelling symptoms. She has no abdominal pain. She denies headache neck pain. She denies back pain. She denies black or red stools. She denies painful urination or frequency of urination. She denies fevers or chills. Related Data Home Medications Medication Instructions Recorded Confirmed lisdexamfetamine 10 mg capsule 10 mg PO DAILY 09/19/23 02/22/24 (Vyvanse) allopurinol 300 mg tablet 300 mg PO BEDTIME 02/22/24 02/22/24 levothyroxine 200 mcg capsule 400 mcg PO QPM 02/22/24 02/22/24 losartan 100 mg tablet 100 mg PO BEDTIME 02/22/24 02/22/24 Previous Rx's Medication Instructions Recorded colchicine 0.6 mg capsule See Rx Instructions PO .COMPLEX 03/13/23 PRN gout #30 caps bupropion HCl 150 mg 24 hr tablet, 150 mg PO QAM #90 tabs 10/21/23 extended release (Wellbutrin XL) clonazepam 0.5 mg tablet 0.5 mg PO DAILY PRN anxiety #10 10/21/23 tabs doxazosin 4 mg tablet 4 mg PO BEDTIME #90 tabs 10/25/23 Allergies Allergy/AdvReac Type Severity Reaction Status Date / Time ethyl alcohol Allergy Severe hives, Verified 02/22/24 11:04 repiratory distress medroxyprogesterone AdvReac Mild was Verified 02/22/24 11:04 advised to not take by previous provider Review of Systems Review of Systems Narrative: see HPI Patient History Medical History Unspecified abdominal pain Sprain of medial collateral ligament of left knee, initial encounter Abnormal weight gain Pulmonary embolism (~2011) Graves' disease Hypothyroid Insomnia Hemorrhage of skin lesion Surgical History Hx of colonoscopy Social History household members: spouse Smoking Status: Former smoker Smoking Status: Former smoker alcohol intake frequency: 0-2 drinks per day Substance Use Type: does not use Exam Narrative Exam Narrative: GENERAL: Well-developed patient, in mild distress. HEAD: Atraumatic. Normocephalic. EYES: Pupils equal round and reactive. Extraocular motions intact. No scleral icterus. No injection or drainage. ENT: Nose without bleeding, purulent drainage. Throat without erythema, tonsillar hypertrophy or exudate. Airway patent. NECK: Trachea midline. Non tender CARDIOVASCULAR: Initial fast regular rate and rhythm, without murmurs, gallops, or rubs. RESPIRATORY: Clear to auscultation. Breath sounds equal bilaterally. No wheezes, rales, or rhonchi. GASTROINTESTINAL: Large pannus, morbidly obese, well healed laparoscopy scars. EXTREMITIES: No edema or joint tenderness. BACK: Nontender without deformity or crepitance. No flank tenderness. NEURO: AOx3. Gross normal neuro exam SKIN: No rash or erythema of visible areas Initial Vital Signs Initial Vital Signs: Vital Signs Temperature 98.4 F 02/22/24 10:58 Pulse Rate 95 H 02/22/24 10:58 Respiratory Rate 20 02/22/24 10:58 Blood Pressure 160/78 H 02/22/24 10:58 Pulse Oximetry 91 02/22/24 10:58 Oxygen Delivery Method Room Air 02/22/24 10:58 Course Orders Ordered: ED Orders 02/22/24 12:53 Blood Culture Stat 02/22/24 13:32 EC echo doppler complete Stat 02/22/24 15:10 Troponin I Stat 02/22/24 17:42 Education, smoking cessation ONGOING Acetaminophen (Acetaminophen 325 Mg Tablet) 650 mg PO Q6H PRN PRN Reason: Fever/Mild Pain (1-3) Allopurinol (Allopurinol 100 Mg Tablet) 300 mg PO BEDTIME [facility] Last Admin: 02/22/24 20:55 Dose: 300 mg Documented By: MS Apixaban (Apixaban 5 Mg Tablet) 10 mg PO BID [facility] Last Admin: 02/22/24 20:54 Dose: 10 mg Documented By: MS Bupropion HCl (Bupropion Xl 150 Mg Tab) 150 mg PO DAILY [facility] Clonazepam (Clonazepam 0.5 Mg Tablet) 0.5 mg PO DAILY PRN PRN Reason: anxiety Doxazosin Mesylate (Doxazosin 2 Mg Tablet) 4 mg PO BEDTIME [facility] Last Admin: 02/22/24 20:53 Dose: 4 mg Documented By: MS Levothyroxine Sodium (Levothyroxine 100 Mcg Tablet) 400 mcg PO BEDTIME [facility] Last Admin: 02/22/24 20:56 Dose: 400 mcg Documented By: Losartan Potassium (Losartan 50 Mg Tablet) 100 mg PO BEDTIME [facility] Last Admin: 02/22/24 20:55 Dose: 100 mg Documented By: MS Naloxone HCl (Naloxone 0.4 Mg/Ml Vial) 0.2 mg IV Q2MIN PRN PRN Reason: Opiate Reversal Non-Form: Vyvanse ( Lisdexamfetamine) 10 Mg Cap 10 mg PO DAILY NANCY Discontinued Medications Apixaban (Apixaban 5 Mg Tablet) 5 mg PO BID [facility] Heparin Sodium (Porcine) (Heparin 5,000 Unit/Ml Vial) 5,000 unit IV NOW ONE Stop: 02/22/24 12:59 Last Admin: 02/22/24 13:20 Dose: 5,000 unit Documented By: MARCI Sodium Chloride (Normal Saline 0.9%) 1,000 mls @ 1,000 mls/hr IV BOLUS ONE Stop: 02/22/24 12:08 Last Infusion: 02/22/24 12:54 Dose: Infused Documented By: Admin: 02/22/24 11:38 Dose: 1,000 mls/hr Documented By: MARCI Ceftriaxone Sodium 1,000 mg/ (Sodium Chloride) 100 mls @ 200 mls/hr IV NOW ONE Stop: 02/22/24 12:21 Last Infusion: 02/22/24 14:02 Dose: Infused Documented By: Admin: 02/22/24 13:20 Dose: 200 mls/hr Documented By: MARCI Heparin Sodium/Dextrose (Heparin Drip) 25,000 unit in 500 mls @ 48.792 mls/hr IV CONT NANCY; Protocol Last Admin: 02/22/24 13:21 Dose: 14.8 units/kg/hr, 40.118 mls/hr Documented By: MARCI Co-signed By: REGIS Heparin Sodium/Dextrose (Heparin Drip) 25,000 unit in 500 mls @ 48.792 mls/hr IV CONT NANCY; Protocol Stop: 02/22/24 22:00 Non-Formulary Medication (Levothyroxine) 400 mcg PO QPM NANCY Non-Formulary Medication (Doxazosin) 4 mg PO BEDTIME NANCY Non-Formulary Medication (Allopurinol) 300 mg PO BEDTIME NANCY Vital Signs Vital signs: Vital Signs - 8 hr 02/22/24 13:48 02/22/24 13:48 02/22/24 13:55 Pulse Rate 92 H Respiratory Rate 20 36 H Blood Pressure 174/94 H Pulse Oximetry 96 84 L Oxygen Delivery Method Nasal Cannula Oxygen Flow Rate 2 02/22/24 14:00 02/22/24 14:00 02/22/24 14:15 Pulse Rate 102 H 81 Respiratory Rate 23 Blood Pressure 171/88 H Pulse Oximetry 94 96 Oxygen Delivery Method Oxygen Flow Rate 02/22/24 14:30 02/22/24 14:30 02/22/24 14:45 Pulse Rate 81 81 Respiratory Rate 19 18 Blood Pressure 157/77 H Pulse Oximetry 94 95 Oxygen Delivery Method Oxygen Flow Rate 02/22/24 15:00 02/22/24 15:00 02/22/24 15:15 Pulse Rate 84 82 Respiratory Rate 19 13 Blood Pressure 174/89 H Pulse Oximetry 93 93 Oxygen Delivery Method Oxygen Flow Rate 2 02/22/24 15:30 02/22/24 15:30 02/22/24 15:32 Pulse Rate 78 Respiratory Rate 16 Blood Pressure 219/105 H 179/90 H Pulse Oximetry 97 Oxygen Delivery Method Oxygen Flow Rate 02/22/24 15:32 02/22/24 15:45 02/22/24 16:00 Pulse Rate 85 77 Respiratory Rate 29 H 26 H Blood Pressure 194/93 H Pulse Oximetry 97 94 Oxygen Delivery Method Oxygen Flow Rate 02/22/24 16:00 02/22/24 16:15 02/22/24 16:17 Pulse Rate 76 85 Respiratory Rate 24 19 Blood Pressure 172/97 H Pulse Oximetry 95 94 Oxygen Delivery Method Nasal Cannula Nasal Cannula Oxygen Flow Rate 2 2 02/22/24 16:17 Pulse Rate 88 Respiratory Rate 37 H Blood Pressure Pulse Oximetry 94 Oxygen Delivery Method Nasal Cannula Oxygen Flow Rate 2 MDM - Syncope Lab Data Attestation: I reviewed the patient's lab results. 02/22/24 11:10 02/22/24 11:10 Labs: Lab Results 02/22/24 02/22/24 02/22/24 Range/Units 11:10 11:15 15:10 WBC 13.0 H (4.5-11.0) X10^3/uL RBC 3.99 L (4.0-5.2) X10^6/uL Hgb 11.1 L (12.0-16.0) g/dL Hct 34.3 L (36-46) % MCV 86.0 (80-100) fL MCH 27.8 (26-34) PG MCHC 32.4 (30-36) % RDW 15.3 H (11.6-14.8) % Plt Count 292 (150-400) X10^3/uL Neut % (Auto) 81.7 H (50-75) % Lymph % (Auto) 10.2 L (25-40) % Montgomery % (Auto) 6.2 (3-14) % Eos % (Auto) 1.0 L (2-4) % Baso % (Auto) 0.9 (0-2) % Neut # (Auto) 92925 H (0333-2542) /uL Lymph # (Auto) 1300 (4520-4821) /uL Montgomery # (Auto) 800 (0-900) /uL Eos # (Auto) 100 (0-450) /uL Baso # (Auto) 100 (0-100) /uL PT 12.8 H (9.4-12.5) SECONDS INR 1.1 (0.9-1.3) APTT 35 (25.1-36.5) SECONDS Sodium 138 (137-145) mmol/L Potassium 4.1 (3.4-5.1) mmol/L Chloride 108 H (98-107) mmol/L Carbon Dioxide 25 (22-32) mmol/L BUN 19 H (7-17) mg/dL Creatinine 0.85 (0.52-1.04) mg/dL Estimated GFR > 60 (>60) mL/min BUN/Creatinine Ratio 22.4 H (6-22) Glucose 104 H (70-100) mg/dL Calcium 9.4 (8.4-10.2) mg/dL Magnesium 1.8 (1.6-2.3) mg/dL Total Bilirubin 0.6 (0.2-1.3) mg/dL AST 29 (14-36) IU/L ALT 25 (<35) IU/L Alkaline Phosphatase 81 (38-126) U/L Total Creatine Kinase 48 (30-135) U/L Troponin I 0.037 H 0.034 (0.01-0.034) ng/mL NT-Pro-B Natriuret Pep 2550 H (<125) pg/mL Total Protein 6.8 (6.3-8.2) g/dL Albumin 3.6 (3.5-5.0) g/dL Globulin 3.2 (1.7-4.1) g/dL Albumin/Globulin Ratio 1.1 (1.0-2.8) Lipase 78 (23-300) U/L Urine Color Yellow Urine Appearance Clear Urine pH 8.0 (4.5-8.0) Ur Specific [place]iman 1.015 (1.000-1.035) Urine Protein Trace H (Negative) Urine Glucose (UA) Negative (Negative) g/dL Urine Ketones Negative (NEGATIVE) Urine Occult Blood Trace-intact (Negative) Urine Nitrate Negative (Negative) Urine Bilirubin 1+ H (NEGATIVE) Ur Bilirubin Confirm Negative (Negative) Urine Urobilinogen 1.0 (0.2) E.U./dL Ur Leukocyte Esterase Negative (NEGATIVE) Urine RBC 1-5/hpf (0-5/HPF) Urine WBC 5-10/hpf H (0-5/HPF) Ur Squamous Epith Cells 5-10 /hpf H (0-5/HPF) Amorphous Sediment 2+ Urine Bacteria Moderate (10-30) H (None) Ur Culture Indicated? Specimen cultured Vol Urine Centrifuged 10ml (spun) Chlamy pneumoniae PCR Not detected (Not Detect) Adenovirus (PCR) Not detected (Not Detect) B.parapertussis DNA PCR Not detected (Not Detecte) Coronavirus OC43 (PCR) Not detected (Not Detect) Coronavirus HKU1 (PCR) Not detected (Not Detect) Coronavirus 229E (PCR) Not detected (Not Detect) SARS-CoV-2 (PCR) Not detected (Not Detecte) Coronavirus NL63 (PCR) Not detected (Not Detect) Human Metapneumovir PCR Not detected (Not Detect) Influenza Type A (PCR) Not detected (Not Detect) Influenza Type B (PCR) Not detected (Not Detect) M. pneumoniae (PCR) Not detected (Not Detect) Parainfluenza 1 (PCR) Not detected (Not Detect) Parainfluenza 2 (PCR) Not detected (Not Detect) Parainfluenza 3 (PCR) Not detected (Not Detect) Parainfluenza 4 (PCR) Not detected (Not Detect) RSV (PCR) Not detected (Not Detect) Entero/Rhino (PCR) Not detected (Not Detect) Imaging Data Chest x-ray: Radiologist's Impression: Close Abdomen/Pelvis [facility] Launch?Image [address] [address] XRay Report Signed Patient: May Aguirre MR#: [id number] : 1965 Acct:[id number] Age/Sex: 58 / F Date of Service: 02/22/24 Loc: ED Accession Number: [id number] Procedure: XR chest 1V Ordering Provider: Bishop Castillo MD PROCEDURE: XR CHEST 1V INDICATIONS: chest pain TECHNIQUE: One view of the chest was acquired. COMPARISON: Merged With [facility], , CHEST 2 VIEW, 09/08/2017, 10:12. FINDINGS: Surgical changes and devices: None. Lungs and pleura: Lungs are clear. No pleural effusions or pneumothorax. Mediastinum: Mediastinal contours appear normal. The heart is enlarged. Bones and chest wall: No suspicious bony lesions. Overlying soft tissues appear unremarkable. IMPRESSION: Cardiomegaly without acute cardiopulmonary process. Dictated by: Pati Simons M.D. on 02/22/2024 at 10:43 Approved by: Pati Simons M.D. on 02/22/2024 at 10:45 CT angiogram chest: Radiologist's Impression: [address] [address] [address] Scan Report Signed Patient: May Aguirre MR#: [id number] : 1965 Acct:[id number] Age/Sex: 58 / F Date of Service: 02/22/24 Loc: ED Accession Number: [id number] Procedure: CT angio chest PE protocol Ordering Provider: Bishop Castillo MD PROCEDURE: CT ANGIO CHEST PE PROTOCOL, CT ABDOMEN/PELVIS WITH CONTRAST INDICATIONS: syncope/ hypoxia/oxygen req./ tachycardia TECHNIQUE: Computed tomography of the chest, abdomen, and pelvis was performed following the administration of IV contrast. Coronal, sagittal, and maximum intensity projection reformatted images are provided. For radiation dose reduction, the following was used: automated exposure control, adjustment of mA and/or kV according to patient size. COMPARISON: None. FINDINGS: Image quality: Diagnostic. Pulmonary arteries: The main pulmonary arteries and pulmonary trunk are of normal caliber without intraluminal filling defect. There are extensive bilateral filling defects within all segmental arteries extending into several subsegmental arteries. Lower Neck: No enlarged lymph nodes. Thyroid: Visible portions unremarkable. Axillae: No enlarged lymph nodes. Chest Wall: Unremarkable. Bones: Unremarkable. Lungs and Pleura: No pneumothorax or pleural effusions. No consolidation or suspicious nodules. Heart: Heart size is normal. No pericardial effusion. Thoracic Vessels: No aortic aneurysm. Mediastinum and Dana: No enlarged lymph nodes. Esophagus: No wall thickening. No hiatal hernia. Liver: Normal size and morphology without focal lesion. Biliary: No intraluminal stone or debris. No biliary ductal dilation. Pancreas: Mild fatty atrophy without focal lesion. Spleen: Normal. Adrenals: Normal. Kidneys: Normal without stone or hydronephrosis. Mesentery: No ascites or lymphadenopathy. No mesenteric inflammation. Bowel: Bowel is of normal caliber without obstruction. Postsurgical changes of the stomach are shown. Bones: Intact without aggressive lesion. Soft tissues: There is a small fat containing umbilical hernia. Otherwise normal. IMPRESSION: Extensive multifocal segmental pulmonary emboli. No acute abdominal process. Dictated by: Pati Simons M.D. on 02/22/2024 at 11:33 Approved by: Pati Simons M.D. on 02/22/2024 at 11:43 CT scan - abdomen/pelvis: Radiologist's Impression: [address] [address] [address] Scan Report Signed Patient: May Aguirre MR#: [id number] : 1965 Acct:[id number] Age/Sex: 58 / F Date of Service: 02/22/24 Loc: ED Accession Number: [id number] Procedure: CT abdomen pelvis w con Ordering Provider: Bishop Castillo MD Approved by: Pati Simons M.D. on 02/22/2024 at 11:44 Caution: Report not yet finalized and possibly incomplete! PROCEDURE: CT ANGIO CHEST PE PROTOCOL, CT ABDOMEN/PELVIS WITH CONTRAST INDICATIONS: syncope/ hypoxia/oxygen req./ tachycardia TECHNIQUE: Computed tomography of the chest, abdomen, and pelvis was performed following the administration of IV contrast. Coronal, sagittal, and maximum intensity projection reformatted images are provided. For radiation dose reduction, the following was used: automated exposure control, adjustment of mA and/or kV according to patient size. COMPARISON: None. FINDINGS: Image quality: Diagnostic. Pulmonary arteries: The main pulmonary arteries and pulmonary trunk are of normal caliber without intraluminal filling defect. There are extensive bilateral filling defects within all segmental arteries extending into several subsegmental arteries. Lower Neck: No enlarged lymph nodes. Thyroid: Visible portions unremarkable. Axillae: No enlarged lymph nodes. Chest Wall: Unremarkable. Bones: Unremarkable. Lungs and Pleura: No pneumothorax or pleural effusions. No consolidation or suspicious nodules. Heart: Heart size is normal. No pericardial effusion. Thoracic Vessels: No aortic aneurysm. Mediastinum and [place]: No enlarged lymph nodes. Esophagus: No wall thickening. No hiatal hernia. Liver: Normal size and morphology without focal lesion. Biliary: No intraluminal stone or debris. No biliary ductal dilation. Pancreas: Mild fatty atrophy without focal lesion. Spleen: Normal. Adrenals: Normal. Kidneys: Normal without stone or hydronephrosis. Mesentery: No ascites or lymphadenopathy. No mesenteric inflammation. Bowel: Bowel is of normal caliber without obstruction. Postsurgical changes of the stomach are shown. Bones: Intact without aggressive lesion. Soft tissues: There is a small fat containing umbilical hernia. Otherwise normal. IMPRESSION: Extensive multifocal segmental pulmonary emboli. No acute abdominal process. Dictated by: Pati Simons M.D. on 02/22/2024 at 11:33 Echocardiogram: Radiologist's Impression: [address] [address] Echocardiography Report Signed Patient: May Aguirre MR#: [id number] : 1965 Acct:[id number] Age/Sex: 58 / F Date of Service: 02/22/24 Loc: ED Accession Number: [id number] Procedure: EC echo doppler complete Ordering Provider: Bishop Castillo MD [facility] + + Hospital : : [facility]. : : [facility] : : AlFidel Moris, : : [place] [id number] : : Phone: [phone] Echocardiogram Report + + :Name: MAY AGUIRRE Study Date: 02/22/2024 Height: 65 in : :[facility] ReadingLocation: Weight: 286 lb : : Gender: Female BSA: 2.3 m2 : :: 1965 Age: 58 yrs BP: 174/94 mmHg: :Reason For Study: PE : :Ordering Physician: ANNA, : :BISHOP Performed By: Chilango Freeman : :Referring: BISHOP CASTILLO : + + Interpretation Summary The left ventricle is normal in size. There is mild-moderate concentric left ventricular hypertrophy. The ejection fraction is estimated to be 65-70%. The right ventricle is mildly dilated. The right ventricular systolic function is normal.TAPSE: 2.3 cm. No gross significant valvular pathology seen. The IVC is dilated (diameter is greater than 2.1 cm) yet it collapses greater than 50% with a sniff. This suggests a right atrial pressure of 8 mm Hg. BP: 174/94 mmHg Procedure: A two-dimensional transthoracic echocardiogram with color flow and Doppler was performed. The study quality was technically adequate. There is no prior echocardiogram noted for this patient. The heart rate ranged between 80-94 bpm during the study. The patient was in normal sinus rhythm during the exam. Left Ventricle: The left ventricle is normal in size. There is mild-moderate concentric left ventricular hypertrophy. There is no thrombus. The ejection fraction is estimated to be 65-70%. The left ventricular ejection fraction is normal. There are no focal wall motion abnormalities. Diastolic parameters suggest a relaxation abnormality of the left ventricle, consistent with probable normal filling pressures. Right Ventricle: The right ventricle is mildly dilated. The right ventricular systolic function is normal. Atria: The left atrial size is normal. The right atrium is mildly dilated. The interatrial septum grossly appears intact with no obvious evidence for an atrial septal defect. Mitral Valve: The mitral valve is normal. There is no mitral valve stenosis. There is no mitral regurgitation noted. Aortic Valve: The aortic valve is not well visualized. The aortic valve opens well. There is no aortic valve stenosis. No aortic regurgitation is present. Tricuspid Valve: The tricuspid valve is normal. There is no tricuspid stenosis. There is trace tricuspid regurgitation. Pulmonary artery pressures cannot be estimated because of the lack of a measurable TR jet velocity. Pulmonic Valve: The pulmonic valve is not well visualized. There is no pulmonic valvular stenosis. There is no pulmonic valvular regurgitation. Great Vessels: The aortic root is normal size. The dimensions of the ascending aorta are normal. The IVC is dilated (diameter is greater than 2.1 cm) yet it collapses greater than 50% with a sniff. This suggests a right atrial pressure of 8 mm Hg. Pericardium/ Pleura There is no pericardial effusion. There is an anterior echo-free space consistent with a fat pad. There is no pleural effusion. MMode/2D Measurements & Calculations LVIDd: 4.4 cm LVOT diam: 2.2 cm LVIDs: 3.2 cm Ao root diam: 3.2 cm IVSd: 1.5 cm asc Aorta Diam: 3.3 cm LVPWd: 1.5 cm Ao Arch Diam (Prox Trans): 2.7 cm LV leary. diameter/BSA (cm/m^2): 1.9 LV sys. diameter/BSA (cm/m^2): 1.4 FS: 27.2 % LA A2 area: 20.9 cm2 RA long axis: 4.7 cm LA A4 area: 18.3 cm2 RA area: 16.5 cm2 LA length (vol): 5.2 cm RA vol: 49.7 ml LA vol: 62.2 ml RA : 21.6 ml/m2 LA vol index: 27.0 ml/m2 RVD1 (basal): 4.5 cm IVC diam: 2.6 cm RVD2 (mid): 3.7 cm TAPSE: 2.3 cm Doppler Measurements & Calculations Ao V2 max: 138.5 cm/sec LVOT Max Chucky: 115.5 cm/sec Ao V2 mean: 104.6 cm/sec LV V1 max P.3 mmHg Ao V2 VTI: 25.1 cm LV V1 VTI: 22.3 cm Ao max P.7 mmHg Ao mean P.7 mmHg DAYANA(I,D): 3.4 cm2 MV E max chucky: 63.7 cm/sec DAYANA(V,D): 3.2 cm2 MV A max chucky: 85.5 cm/sec DAYANA indexed to BSA (cm^2/m^2): 1.5 MV E/A: 0.74 sev ratio: 0.89 Med Peak E' Chucky: 6.4 cm/sec E/E' med: 10.0 Lat Peak E' Chucky: 7.6 cm/sec E/E' lat: 8.4 E/e' average: 9.2 MV dec time: 0.20 sec PA V2 max: 82.3 cm/sec PA V2 mean: 53.8 cm/sec PA mean P.3 mmHg PA pr(Accel): 61.9 mmHg SV(LVOT): 86.0 ml Reading Physician:03:22 PM ECG Data Attestation: I personally reviewed and interpreted this ECG as follows: Interpretation: Normal sinus rhythm with rate of 88, no obvious ST segment elevation or depression changes. HI 180, QRS 84, QTC 467. MDM Narrative Medical decision making narrative: 58-year-old female with history of morbid obesity status post gastric bypass surgery 3 months ago, was ascending stairs when she felt increasing short of breath and briefly passed out, transferred by air from [facility], recovered prior to transfer. Sinus tachycardia noted. Surgical wound site obese abdominal exam wall well-healing, no redness or tenderness. Speaking in full sentences. Nonfocal neuro exam. Afebrile, sirs screen negative. Screening EKG unremarkable with sinus heart rate 88, no obvious ischemic changes, no positive R-wave anterior septal leads. CT angiogram chest with abdomen and pelvis imaging ordered. CTA chest shows multiple pulmonary emboli, no CT evidence for RV strain described. No acute abdominopelvic changes. IV heparin and infusion per VTE/PE protocol. We will contact hospitalist PATCHER BOWLING BALL relayed info query to hospitalist Dr Barrow who requested Echocardiogram, ordered. Echocardiogram shows mild dilation right heart, right ventricular systolic function is normal. See echocardiogram report. Repeat troponin 0.034 is still negative, decreased from previous results 0.037 1615, case discussed with hospitalist Dr. Barrow who accepts patient for admission to inpatient Critical Care Time Critical Care Time Critical Care Time: Yes Total Critical Care Time: 35 Attestation: The high probability of a clinically significant, sudden or life threatening deterioration of the [cardiopulmonary] system(s) required my full and direct attention, intervention and personal management. The aggregate critical care time was [35] minutes. This time is in addition to time spent performing reported procedures but includes the following: [x] Data Review and interpretation [x] Patient assessment and monitoring of vital signs [x] Documentation [x] Medication orders and management Discharge Plan Departure Patient Disposition: Admitted As Inpatient Clinical Impression: Syncope, Pulmonary emboli, Hypoxia Admit Date/Time: 02/22/24 16:28 Admit Provider: Rayray Barrow
[2024-02-22 12:51] LABS: Adenovirus Not Detected (Not Detect); B. parapertussis Not Detected (Not Detecte); Bordetella pertussis Not Detected (Not Detect); Chlamydophila pneumoniae Not Detected (Not Detect); Coronavirus 229E Not Detected (Not Detect); Coronavirus HKU1 Not Detected (Not Detect); Coronavirus NL 63 Not Detected (Not Detect); Coronavirus OC43 Not Detected (Not Detect); Human Metapneumovirus Not Detected (Not Detect); Human Rhinovirus/Enterovirus Not Detected (Not Detect); Influenza A Not Detected (Not Detect); Influenza B Not Detected (Not Detect); Mycoplasma pneumoniae Not Detected (Not Detect); Parainfluenza Virus 1 Not Detected (Not Detect); Parainfluenza Virus 2 Not Detected (Not Detect); Parainfluenza Virus 3 Not Detected (Not Detect); Parainfluenza Virus 4 Not Detected (Not Detect); Respiratory Syncytial Virus Not Detected (Not Detect); SARS- CoV-2 Not Detected (Not Detecte)
[2024-02-22] MEDS: HEPARIN 5,000 UNIT/ML VIAL 5000 UNIT IV (13:20)
[2024-02-22] MEDS: cefTRIAXone 1,000 MG in SODIUM CHLORIDE 0.9% 100 ML 200 MG IV (13:20)
[2024-02-22] MEDS: HEPARIN DRIP 25,000 UNIT/500 ML IV.SOLN 40.118 UNIT IV (13:21)
--- NOTE | 2024-02-22 13:28 | PM.CALLCOV.1 ---
Call Coverage Note Note Narrative of Care Provided: 58 F presented with syncope, multiple subsegmental PE found on CTA. She has borderline elevated troponin and BNP with elevated biomarkers. Recommend echocardiogram, continued heparin infusion. Typically, without IR intervention available, unless R heart strain is ruled out recommend transfer for availability of interventional radiology. Update: patient is hypoxic, echocardiogram rules out R heart pathology. She has evidence of diastolic dysfunction and LVH. She can be admitted for further inpatient management of PE with continued hypoxia. She can transition to oral anticoagulation, ER provider would like me to perform this once upstairs.
--- NOTE | 2024-02-22 13:32 | DI.ECHO.S_ITS ---
[facility] : : [address] : : [facility] : : [place], : : [place] [address] : : Phone: [phone] Echocardiogram Report + + :Name: MAY MALDONADO Study Date: 02/22/2024 Height: 65 in : :[facility] ReadingLocation: Weight: 286 lb : : Gender: Female BSA: 2.3 m2 : :: 1965 Age: 58 yrs BP: 174/94 mmHg: :Reason For Study: PE : :Ordering Physician: ANNA, : :JAS Performed By: Chilango Freeman : :Referring: JAS CASTILLO : + + Interpretation Summary The left ventricle is normal in size. There is mild-moderate concentric left ventricular hypertrophy. The ejection fraction is estimated to be 65-70%. The right ventricle is mildly dilated. The right ventricular systolic function is normal.TAPSE: 2.3 cm. No gross significant valvular pathology seen. The IVC is dilated (diameter is greater than 2.1 cm) yet it collapses greater than 50% with a sniff. This suggests a right atrial pressure of 8 mm Hg. BP: 174/94 mmHg Procedure: A two-dimensional transthoracic echocardiogram with color flow and Doppler was performed. The study quality was technically adequate. There is no prior echocardiogram noted for this patient. The heart rate ranged between 80-94 bpm during the study. The patient was in normal sinus rhythm during the exam. Left Ventricle: The left ventricle is normal in size. There is mild-moderate concentric left ventricular hypertrophy. There is no thrombus. The ejection fraction is estimated to be 65-70%. The left ventricular ejection fraction is normal. There are no focal wall motion abnormalities. Diastolic parameters suggest a relaxation abnormality of the left ventricle, consistent with probable normal filling pressures. Right Ventricle: The right ventricle is mildly dilated. The right ventricular systolic function is normal. Atria: The left atrial size is normal. The right atrium is mildly dilated. The interatrial septum grossly appears intact with no obvious evidence for an atrial septal defect. Mitral Valve: The mitral valve is normal. There is no mitral valve stenosis. There is no mitral regurgitation noted. Aortic Valve: The aortic valve is not well visualized. The aortic valve opens well. There is no aortic valve stenosis. No aortic regurgitation is present. Tricuspid Valve: The tricuspid valve is normal. There is no tricuspid stenosis. There is trace tricuspid regurgitation. Pulmonary artery pressures cannot be estimated because of the lack of a measurable TR jet velocity. Pulmonic Valve: The pulmonic valve is not well visualized. There is no pulmonic valvular stenosis. There is no pulmonic valvular regurgitation. Great Vessels: The aortic root is normal size. The dimensions of the ascending aorta are normal. The IVC is dilated (diameter is greater than 2.1 cm) yet it collapses greater than 50% with a sniff. This suggests a right atrial pressure of 8 mm Hg. Pericardium/ Pleura There is no pericardial effusion. There is an anterior echo-free space consistent with a fat pad. There is no pleural effusion. MMode/2D Measurements & Calculations LVIDd: 4.4 cm LVOT diam: 2.2 cm LVIDs: 3.2 cm Ao root diam: 3.2 cm IVSd: 1.5 cm asc Aorta Diam: 3.3 cm LVPWd: 1.5 cm Ao Arch Diam (Prox Trans): 2.7 cm LV leary. diameter/BSA (cm/m^2): 1.9 LV sys. diameter/BSA (cm/m^2): 1.4 FS: 27.2 % LA A2 area: 20.9 cm2 RA long axis: 4.7 cm LA A4 area: 18.3 cm2 RA area: 16.5 cm2 LA length (vol): 5.2 cm RA vol: 49.7 ml LA vol: 62.2 ml RA : 21.6 ml/m2 LA vol index: 27.0 ml/m2 RVD1 (basal): 4.5 cm IVC diam: 2.6 cm RVD2 (mid): 3.7 cm TAPSE: 2.3 cm Doppler Measurements & Calculations Ao V2 max: 138.5 cm/sec LVOT Max Chucky: 115.5 cm/sec Ao V2 mean: 104.6 cm/sec LV V1 max P.3 mmHg Ao V2 VTI: 25.1 cm LV V1 VTI: 22.3 cm Ao max P.7 mmHg Ao mean P.7 mmHg DAYANA(I,D): 3.4 cm2 MV E max chucky: 63.7 cm/sec DAYANA(V,D): 3.2 cm2 MV A max chucky: 85.5 cm/sec DAYANA indexed to BSA (cm^2/m^2): 1.5 MV E/A: 0.74 sev ratio: 0.89 Med Peak E' Chucky: 6.4 cm/sec E/E' med: 10.0 Lat Peak E' Chucky: 7.6 cm/sec E/E' lat: 8.4 E/e' average: 9.2 MV dec time: 0.20 sec PA V2 max: 82.3 cm/sec PA V2 mean: 53.8 cm/sec PA mean P.3 mmHg PA pr(Accel): 61.9 mmHg SV(LVOT): 86.0 ml Reading Physician:03:22 PM
--- NOTE | 2024-02-22 14:38 | PC.NURSE ---
SpO2 88% RA after walking from bathroom to room (approx 25 feet). Pt state she had a similar syncopal episode a few months ago. Pt states today she felt faint and was able to lower herself to the ground
[2024-02-22 15:41] LABS: Troponin I 0.034 ng/mL (0.01-0.034)
--- NOTE | 2024-02-22 16:45 | PC.NURSE ---
Patient walked to the bathroom on room air, O2 Saturation dropped to 78% while walking and she became markedly short of breath.
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
--- NOTE | 2024-02-22 18:53 | PC.NURSE ---
Pt arrived from ED A/O Denies c/o dizzines at this time. Heparin gtt infusing as per MD orders Denies discomfort. Lungs clear, T/O w/ son SOB w/excertion noted. Pt oriented to RM & call system; Pt calls appropriately for needs. COntinue w/plan of care.
[2024-02-22] MEDS: DOXAZOSIN 2 MG TABLET 4 MG PO (20:53)
[2024-02-22] MEDS: APIXABAN 5 MG TABLET 10 MG PO (20:54)
[2024-02-22] MEDS: allopurinoL 100 MG TABLET 300 MG PO (20:55)
[2024-02-22] MEDS: LOSARTAN 50 MG TABLET 100 MG PO (20:55)
[2024-02-22] MEDS: LEVOTHYROXINE 100 MCG TABLET 400 MCG PO (20:56)
[2024-02-23] VITALS (9 sets, daily range): BP systolic 128–154; BP diastolic 78–99; PULSE 84–104; RESP 16–20; TEMP 36.2–37.2; O2SAT 92–96
[2024-02-23 06:21] LABS: Add Manual Diff / Slide Review NO; Basophils Absolute Auto 100 /uL (0-100); Basophils Percent Auto 0.6 % (0-2); Eosinophils Absolute Auto 200 /uL (0-450); Eosinophils Percent Auto 2.5 % (2-4); Hematocrit 31.4 % (36-46); Hemoglobin 10.2 g/dL (12.0-16.0); Lymphocytes Absolute Auto 1300 /uL (1100-4500); Lymphocytes Percent Auto 16.3 % (25-40); Mean Corpuscular HGB Conc 32.6 % (30-36); Mean Corpuscular Hemoglobin 28.1 PG (26-34); Mean Corpuscular Volume 86.2 fL (80-100); Monocytes Absolute Auto 700 /uL (0-900); Monocytes Percent Auto 8.8 % (3-14); Neutrophils Absolute Auto 5900 /uL (1500-7000); Neutrophils Percent Auto 71.8 % (50-75); Platelet Count 273 X10^3/uL (150-400); Red Blood Cell Count 3.64 X10^6/uL (4.0-5.2); Red Cell Distribution Width 15.7 % (11.6-14.8); White Blood Cell Count 8.3 X10^3/uL (4.5-11.0)
[2024-02-23 06:39] LABS: BUN Creatinine Ratio 20.3 (6-22); Blood Urea Nitrogen 13 mg/dL (7-17); Carbon Dioxide 24 mmol/L (22-32); Chloride 111 mmol/L (98-107); Estimated Glomerular Filt Rate > 60 mL/min (>60); Glucose 95 mg/dL (70-100); HEMOLYSIS < 15 (0-50); Potassium 3.6 mmol/L (3.4-5.1); Sodium 139 mmol/L (137-145)
[2024-02-23] MEDS: APIXABAN 5 MG TABLET 10 MG PO ×2 (08:28→20:57)
[2024-02-23] MEDS: buPROPion XL 150 MG TAB PO (08:28)
--- NOTE | 2024-02-23 10:23 | PC.NURSE ---
0745 pt awake c/o some nausea, up to bsc to void indep, denies abd pain, am meds given that include Reglan scheduled. Pt tolerated soft breakfast vss to sleep easily call light within reach no other needs at this time.
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
--- NOTE | 2024-02-23 11:28 | PC.NURSE ---
+pt up amb room on RA 96 c/o SOB d/c held probable sleep study jana
--- NOTE | 2024-02-23 14:41 | CM.DANOTE ---
DCP Brief Assessment note Pt is a 58yo F here with hypoxia and PEs PCP Eduardo Silva and medicaid [employer]PER[employer] reviewed EMR. 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 Recent gastric sleeve procedure in [place]. Per PN, plan is to try CiPAP overnight. Continue to wean from oxygen. H&H has dropped since admission, hospitalist will continue to monitor. Likely dc in a day or so. [employer] unable to meet with pt due to triaging needs. ANticipate return home with spouse support. P: anticipate home with spouse support when stable. Likely no CM needs. f/u for medical priority boarding pass need RUDDY Pardo Discharge Planning/Care Management CM Discharge Assessment Start: 02/23/24 14:40 Freq: Status: Active Protocol: Document 02/23/24 14:40 (Rec: 02/23/24 14:41 [id number]) Discharge Planning Assessment Assigned Chief Of Anesthesiology RUDDY Maloney DPOA/Assigned Designee Name Ortega spouse Contact Information [phone] Advance Directives? No History Provided By Patient Prior Living Arrangements House Household Members spouse Independent with ADL's Yes Is patient alert and oriented? Yes Discharge Plan Home Referrals Initiated None needed Whiteboard Updated in Patient Room with No name and ext. # of Chief Of Anesthesiology Review Status In Process Please Provide Date Initial DC 02/23/24 Assessment Was Performed Next Review Type Continued Stay Review
[2024-02-23] MEDS: allopurinoL 100 MG TABLET 300 MG PO (20:57)
[2024-02-23] MEDS: LOSARTAN 50 MG TABLET 100 MG PO (20:57)
[2024-02-23] MEDS: LEVOTHYROXINE 100 MCG TABLET 400 MCG PO (20:57)
[2024-02-23] MEDS: DOXAZOSIN 2 MG TABLET 4 MG PO (20:57)
[2024-02-24] VITALS: BP 150/78; PULSE 86; RESP 18; TEMP 37.1; O2SAT 90
[2024-02-24 04:00] VITALS: BP 145/85; PULSE 81; RESP 16; TEMP 36.8; O2SAT 92
[2024-02-24 06:00] LABS: Add Manual Diff / Slide Review NO; Basophils Absolute Auto 0 /uL (0-100); Basophils Percent Auto 0.5 % (0-2); Eosinophils Absolute Auto 300 /uL (0-450); Eosinophils Percent Auto 3.4 % (2-4); Hematocrit 30.3 % (36-46); Hemoglobin 9.9 g/dL (12.0-16.0); Lymphocytes Absolute Auto 1500 /uL (1100-4500); Lymphocytes Percent Auto 19.9 % (25-40); Mean Corpuscular HGB Conc 32.5 % (30-36); Mean Corpuscular Hemoglobin 27.9 PG (26-34); Mean Corpuscular Volume 85.8 fL (80-100); Monocytes Absolute Auto 600 /uL (0-900); Monocytes Percent Auto 8.1 % (3-14); Neutrophils Absolute Auto 5300 /uL (1500-7000); Neutrophils Percent Auto 68.1 % (50-75); Platelet Count 279 X10^3/uL (150-400); Red Blood Cell Count 3.54 X10^6/uL (4.0-5.2); Red Cell Distribution Width 15.5 % (11.6-14.8); White Blood Cell Count 7.7 X10^3/uL (4.5-11.0)
[2024-02-24 06:14] LABS: BUN Creatinine Ratio 18.1 (6-22); Blood Urea Nitrogen 13 mg/dL (7-17); Calcium 9.2 mg/dL (8.4-10.2); Carbon Dioxide 22 mmol/L (22-32); Chloride 111 mmol/L (98-107); Estimated Glomerular Filt Rate > 60 mL/min (>60); Glucose 89 mg/dL (70-100); HEMOLYSIS < 15 (0-50); Potassium 3.5 mmol/L (3.4-5.1); Sodium 138 mmol/L (137-145)
[2024-02-24 08:00] VITALS: BP 136/82; PULSE 84; RESP 18; TEMP 36.6; O2SAT 94
[2024-02-24] MEDS: APIXABAN 5 MG TABLET 10 MG PO (08:33)
[2024-02-24] MEDS: buPROPion XL 150 MG TAB PO (08:33)
--- NOTE | 2024-02-24 10:38 | CM.DPNOTE ---
DCP Note WORKERS COMPENSATION EXAMINER reviewed EMR. WORKERS COMPENSATION EXAMINER entered room and introduced self and role. Pt reports her plan is to stay in [place] overnight and have her partner pick her up tomorrow to [place] ferry home. Kindly asked for a work excuse letter. Pt reports she already has her f/u appointment with Dr. Spencer scheduled. WORKERS COMPENSATION EXAMINER gave pt contact information for [facility]anna hunter to taxi from hospital to hotel. pt appreciative Per RN, RT reports no home O2 needed at this time. Per hospitalist in morning rounds, dc today. Agreed to work excuse letter, ordered two weeks off work. signed letter. WORKERS COMPENSATION EXAMINER delivered work excuse letter to pt. Pt appreciative. denies other CM needs at this time. P: dc today to [facility] via [facility], partner to p/u pt tomorrow to transport back to [place]. No identified barriers to safe dc home at this time. CM team will continue to follow as needed RUDDY Pardo
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
[2024-02-24 12:00] VITALS: BP 137/72; PULSE 75; RESP 19; TEMP 36.7; O2SAT 93
== END 2024-02-24 15:00 | disposition home or self-care (01) | DRG 197 ==
LOC: ED 16:27 → AC 16:29
PROVIDERS: Admitting Provider Internal Medicine; Emergency Provider Emergency Medicine; PCP Family Medicine; Referring Provider Emergency Medicine; Visit Provider Internal Medicine
DX: T81.718A Complication of other artery following a procedure, not elsewhere classified, initial encounter (principal); J96.01 Acute respiratory failure with hypoxia; E66.01 Morbid (severe) obesity due to excess calories; Z68.42 Body mass index [BMI] 45.0-49.9, adult; E89.0 Postprocedural hypothyroidism; I26.94 Multiple subsegmental thrombotic pulmonary emboli without acute cor pulmonale; I10 Essential (primary) hypertension; E66.9 Obesity, unspecified; R79.89 Other specified abnormal findings of blood chemistry; M10.9 Gout, unspecified; F41.9 Anxiety disorder, unspecified; Z98.84 Bariatric surgery status; Z87.891 Personal history of nicotine dependence
CPT/HCPCS: 36415; 71045; 71275; 74177; 80048; 80053; 81001; 82550; 83690; 83735; 83880; 84484; 85025; 85610; 85730; 87040; 87086; 87633; 93005; 93306; 94660; 96365; 96366; 96368; 99285; 99291; 99406; J0696; J1644; Q9967

== ENCOUNTER → 2024-03-12 11:48 | Outpatient (CLI) | payer OTHER, MEDICAID, SELFPAY ==
[2024-02-22 17:21] VITALS: BMI 49.7
[2024-03-12 19:52] LABS: HEMOLYSIS < 15 (0-50); Iron 73 ug/dL (37-170)
[2024-03-12 19:53] LABS: Add Manual Diff / Slide Review NO; Basophils Absolute Auto 100 /uL (0-100); Basophils Percent Auto 1.1 % (0-2); Eosinophils Absolute Auto 200 /uL (0-450); Eosinophils Percent Auto 2.2 % (2-4); Hemoglobin 12.2 g/dL (12.0-16.0); Lymphocytes Absolute Auto 2000 /uL (1100-4500); Lymphocytes Percent Auto 25.7 % (25-40); Mean Corpuscular HGB Conc 32.8 % (30-36); Mean Corpuscular Hemoglobin 28.2 PG (26-34); Mean Corpuscular Volume 85.9 fL (80-100); Monocytes Absolute Auto 500 /uL (0-900); Monocytes Percent Auto 6.8 % (3-14); Neutrophils Absolute Auto 5000 /uL (1500-7000); Neutrophils Percent Auto 64.2 % (50-75); Platelet Count 342 X10^3/uL (150-400); Red Blood Cell Count 4.31 X10^6/uL (4.0-5.2); Red Cell Distribution Width 15.1 % (11.6-14.8); White Blood Cell Count 7.8 X10^3/uL (4.5-11.0)
[2024-03-12 19:55] LABS: Reticulocyte Count, Percent 0.5 % (1.1-2.6)
[2024-03-12 20:05] LABS: BUN Creatinine Ratio 26.2 (6-22); Blood Urea Nitrogen 22 mg/dL (7-17); Calcium 9.9 mg/dL (8.4-10.2); Carbon Dioxide 26 mmol/L (22-32); Chloride 106 mmol/L (98-107); Estimated Glomerular Filt Rate > 60 mL/min (>60); Glucose 92 mg/dL (70-100); HEMOLYSIS < 15 (0-50); Potassium 3.7 mmol/L (3.4-5.1); Sodium 137 mmol/L (137-145)
[2024-03-12 20:07] LABS: Percent Iron Saturation 28 % (15-50); Total Iron Binding Capacity 261 ug/dL (265-497); Transferrin 210 mg/dL (206-381)
[2024-03-12 20:24] LABS: TSH w/ Reflex to FT4 0.13 uIU/mL (0.47-4.68)
[2024-03-12 20:43] LABS: Vitamin B12 790 pg/mL (239-931)
[2024-03-12 21:03] LABS: Free T4, Direct Thyroxine 2.41 ng/dL (0.78-2.19)
== END ==
PROVIDERS: PCP Family Medicine; Visit Provider Family Medicine
DX: R09.02 Hypoxemia (principal); I26.99 Other pulmonary embolism without acute cor pulmonale; N18.31 Chronic kidney disease, stage 3a; E03.9 Hypothyroidism, unspecified; I12.9 Hypertensive chronic kidney disease with stage 1 through stage 4 chronic kidney disease, or unspecified chronic kidney disease
CPT/HCPCS: 80048; 82607; 83540; 83550; 84439; 84443; 85025; 85045

== ENCOUNTER → 2024-07-03 08:32 | Outpatient (CLI) | payer OTHER, SELFPAY ==
[2024-02-22 17:21] VITALS: BMI 49.7
[2024-07-03 17:59] LABS: Add Manual Diff / Slide Review NO; Basophils Absolute Auto 100 /uL (0-100); Basophils Percent Auto 0.8 % (0-2); Eosinophils Absolute Auto 200 /uL (0-450); Eosinophils Percent Auto 2.4 % (2-4); Hematocrit 39.8 % (36-46); Lymphocytes Absolute Auto 2200 /uL (1100-4500); Mean Corpuscular HGB Conc 32.6 % (30-36); Mean Corpuscular Hemoglobin 28.4 PG (26-34); Mean Corpuscular Volume 87.3 fL (80-100); Monocytes Absolute Auto 400 /uL (0-900); Monocytes Percent Auto 6.3 % (3-14); Neutrophils Absolute Auto 4200 /uL (1500-7000); Neutrophils Percent Auto 59.5 % (50-75); Platelet Count 410 X10^3/uL (150-400); Red Blood Cell Count 4.56 X10^6/uL (4.0-5.2); Red Cell Distribution Width 15.6 % (11.6-14.8)
[2024-07-03 18:13] LABS: Alanine Aminotransferase 18 IU/L (<35); Albumin 3.7 g/dL (3.5-5.0); Albumin Globulin Ratio 1.3 (1.0-2.8); Alkaline Phosphatase 71 U/L (38-126); Aspartate Aminotransferase 25 IU/L (14-36); BUN Creatinine Ratio 19.1 (6-22); Bilirubin Total 0.4 mg/dL (0.2-1.3); Blood Urea Nitrogen 21 mg/dL (7-17); Calcium 9.9 mg/dL (8.4-10.2); Carbon Dioxide 29 mmol/L (22-32); Chloride 107 mmol/L (98-107); Cholesterol 246 mg/dL (140-199); Estimated Glomerular Filt Rate 58 mL/min (>60); Globulin 2.9 g/dL (1.7-4.1); Glucose 94 mg/dL (70-100); HDL Cholesterol 96 mg/dL (40-60); HEMOLYSIS < 15 (0-50); LDL Cholesterol Calculated 138 mg/dL (<100); Potassium 4.5 mmol/L (3.4-5.1); Sodium 137 mmol/L (137-145); Total Protein 6.6 g/dL (6.3-8.2); Triglycerides 62 mg/dL (35-150)
[2024-07-03 18:40] LABS: TSH w/ Reflex to FT4 6.83 uIU/mL (0.47-4.68)
[2024-07-03 19:57] LABS: Free T4, Direct Thyroxine 1.96 ng/dL (0.78-2.19)
== END ==
PROVIDERS: PCP Family Medicine; Referring Provider Family Medicine; Visit Provider Family Medicine
DX: E66.01 Morbid (severe) obesity due to excess calories (principal); F32.9 Major depressive disorder, single episode, unspecified; E78.2 Mixed hyperlipidemia; I10 Essential (primary) hypertension; E03.9 Hypothyroidism, unspecified
CPT/HCPCS: 80053; 80061; 84439; 84443; 85025

== ENCOUNTER → 2024-11-10 10:58 | Outpatient (CLI) | payer OTHER, SELFPAY ==
[2024-02-22 17:21] VITALS: BMI 49.7
[2024-11-10 19:40] LABS: Add Manual Diff / Slide Review NO; Basophils Absolute Auto 0 /uL (0-100); Basophils Percent Auto 0.6 % (0-2); Eosinophils Absolute Auto 200 /uL (0-450); Eosinophils Percent Auto 2.4 % (2-4); Hematocrit 39.2 % (36-46); Hemoglobin 12.8 g/dL (12.0-16.0); Lymphocytes Absolute Auto 1800 /uL (1100-4500); Mean Corpuscular HGB Conc 32.6 % (30-36); Mean Corpuscular Hemoglobin 28.3 PG (26-34); Mean Corpuscular Volume 86.8 fL (80-100); Monocytes Absolute Auto 500 /uL (0-900); Monocytes Percent Auto 7.4 % (3-14); Neutrophils Absolute Auto 4500 /uL (1500-7000); Neutrophils Percent Auto 63.6 % (50-75); Platelet Count 390 X10^3/uL (150-400); Red Blood Cell Count 4.52 X10^6/uL (4.0-5.2); Red Cell Distribution Width 15.3 % (11.6-14.8); White Blood Cell Count 7.1 X10^3/uL (4.5-11.0)
[2024-11-10 19:56] LABS: PTT Partial Thromboplastin Tim 47 SECONDS (25.1-36.5)
[2024-11-10 19:58] LABS: Lipase 63 U/L (23-300)
== END ==
PROVIDERS: PCP Family Medicine; Visit Provider Physician Assistant
DX: R23.3 Spontaneous ecchymoses (principal); Z90.3 Acquired absence of stomach [part of]
CPT/HCPCS: 83690; 85025; 85730

== ENCOUNTER → 2024-11-23 10:22 | Outpatient (CLI) | payer OTHER, SELFPAY ==
[2024-02-22 17:21] VITALS: BMI 49.7
[2024-11-23 19:13] LABS: Alanine Aminotransferase 19 IU/L (<35); Albumin 3.6 g/dL (3.5-5.0); Albumin Globulin Ratio 1.4 (1.0-2.8); Alkaline Phosphatase 69 U/L (38-126); Aspartate Aminotransferase 24 IU/L (14-36); BUN Creatinine Ratio 25.3 (6-22); Bilirubin Total 0.6 mg/dL (0.2-1.3); Blood Urea Nitrogen 20 mg/dL (7-17); Calcium 10.1 mg/dL (8.4-10.2); Carbon Dioxide 26 mmol/L (22-32); Chloride 108 mmol/L (98-107); Cholesterol 193 mg/dL (140-199); Estimated Glomerular Filt Rate > 60 mL/min (>60); Globulin 2.6 g/dL (1.7-4.1); Glucose 85 mg/dL (70-99); HDL Cholesterol 71 mg/dL (40-60); HEMOLYSIS < 15 (0-50); LDL Cholesterol Calculated 108 mg/dL (<100); Potassium 4.2 mmol/L (3.4-5.1); Sodium 139 mmol/L (137-145); Total Protein 6.2 g/dL (6.3-8.2); Triglycerides 70 mg/dL (35-150)
[2024-11-23 19:45] LABS: TSH w/ Reflex to FT4 0.02 uIU/mL (0.47-4.68)
[2024-11-23 20:31] LABS: Free T4, Direct Thyroxine 2.12 ng/dL (0.78-2.19)
== END ==
PROVIDERS: PCP Family Medicine; Visit Provider Family Medicine
DX: E03.9 Hypothyroidism, unspecified (principal); M10.9 Gout, unspecified; E78.2 Mixed hyperlipidemia; I10 Essential (primary) hypertension; Z86.711 Personal history of pulmonary embolism
CPT/HCPCS: 80053; 80061; 84439; 84443

== ENCOUNTER → 2025-01-21 10:50 | Outpatient (CLI) | payer OTHER, SELFPAY ==
[2024-02-22 17:21] VITALS: BMI 49.7
[2025-01-21 20:12] LABS: TSH w/ Reflex to FT4 1.30 uIU/mL (0.47-4.68)
== END ==
LOC: LAB 10:50
PROVIDERS: PCP Family Medicine; Visit Provider Family Medicine
DX: E03.4 Atrophy of thyroid (acquired) (principal)
CPT/HCPCS: 84443